=== PATIENT | male | born 1995 | race Caucasian/White ===

== ENCOUNTER 2019-03-23 12:32 | Emergency (ER) | payer SELFPAY ==
[~2019-03-23] VITALS: Ht 167.6 cm; Wt 81.8 kg
[2019-03-23 12:48] VITALS: BP 140/77; TEMP 98.7
[2019-03-23 14:46] VITALS: PULSE 83
== END 2019-03-23 14:46 | disposition home or self-care (01) ==
LOC: COL.ER 12:32
DX: G43.909 Migraine, unspecified, not intractable, without status migrainosus (principal); R07.89 Other chest pain; V43.52XA Car driver injured in collision with other type car in traffic accident, initial encounter